=== PATIENT | male | born 1935 | race Caucasian/White ===

== ENCOUNTER 2017-10-28 18:18 | Emergency (ER) | payer OTHER ==
[~2017-10-28] VITALS: Ht 172.7 cm; Wt 81.6 kg
[2017-10-28] MEDS ORDERED: LIPITOR20 MG PO (19:00)
[2017-10-28] MEDS ORDERED: CELEXA10 MG PO (19:00)
[2017-10-28] MEDS ORDERED: ARICEPT10 MG PO (19:00)
[2017-10-28] MEDS ORDERED: PLAVIX75 MG PO (19:01)
[2017-10-28] MEDS ORDERED: NORVASC5 MG PO (19:01)
[2017-10-28] MEDS ORDERED: NAMENDA5 MG PO (19:01)
[2017-10-28] MEDS ORDERED: COZAAR100 MG PO (19:02)
== END 2017-10-28 22:53 | disposition home or self-care (01) ==
LOC: ER 18:18
DX: G89.11 Acute pain due to trauma (principal); M54.5 Low back pain; R55 Syncope and collapse; G30.8 Other Alzheimer's disease; F02.80 Dementia in other diseases classified elsewhere, unspecified severity, without behavioral disturbance, psychotic disturbance, mood disturbance, and anxiety

== ENCOUNTER 2017-11-18 18:58 | Inpatient (IN) | payer OTHER ==
[~2017-11-18] VITALS: Ht 172.7 cm; Wt 81.6 kg
[~2017-11-18 18:58] MED LIST: ARICEPT10 MG PO; CELEXA10 MG PO; COZAAR100 MG PO; LIPITOR20 MG PO; NAMENDA5 MG PO; NORVASC5 MG PO; PLAVIX75 MG PO
== END 2017-12-10 14:32 | disposition home or self-care (01) | DRG 872 ==
LOC: ER 18:58 → MEDJ 11-19 11:27 → SEC-K 11-19 11:27 → MEDJ 11-19 12:09
PROC: BW25ZZZ Computerized Tomography (CT Scan) of Chest, Abdomen and Pelvis (ICD-10-PCS; 2017-11-19)
PROC: 02HV33Z Insertion of Infusion Device into Superior Vena Cava, Percutaneous Approach (ICD-10-PCS; 2017-11-20)
PROC: 0W9G30Z Drainage of Peritoneal Cavity with Drainage Device, Percutaneous Approach (ICD-10-PCS; principal; 2017-11-21)
PROC: 3E0436Z Introduction of Nutritional Substance into Central Vein, Percutaneous Approach (ICD-10-PCS; 2017-11-24)
PROC: BW21Y0Z Computerized Tomography (CT Scan) of Abdomen and Pelvis using Other Contrast, Unenhanced and Enhanced (ICD-10-PCS; 2017-11-27)
PROC: BW21Y0Z Computerized Tomography (CT Scan) of Abdomen and Pelvis using Other Contrast, Unenhanced and Enhanced (ICD-10-PCS; 2017-12-09)
DX: A41.9 Sepsis, unspecified organism (principal); K57.20 Diverticulitis of large intestine with perforation and abscess without bleeding; E86.0 Dehydration; I10 Essential (primary) hypertension; E78.4 Other hyperlipidemia; M54.5 Low back pain; B96.29 Other Escherichia coli [E. coli] as the cause of diseases classified elsewhere; B96.5 Pseudomonas (aeruginosa) (mallei) (pseudomallei) as the cause of diseases classified elsewhere; B96.6 Bacteroides fragilis [B. fragilis] as the cause of diseases classified elsewhere; B96.7 Clostridium perfringens [C. perfringens] as the cause of diseases classified elsewhere

== ENCOUNTER 2017-12-14 10:33 | Emergency (ER) | payer OTHER ==
[~2017-12-14] VITALS: Ht 172.7 cm; Wt 81.6 kg
== END 2017-12-14 13:30 | disposition home or self-care (01) ==
LOC: ER 10:33
DX: H81.10 Benign paroxysmal vertigo, unspecified ear (principal)

== ENCOUNTER 2018-07-20 14:24 | Emergency (ER) | payer OTHER ==
[~2018-07-20] VITALS: Ht 175.3 cm; Wt 81.6 kg
== END 2018-07-20 21:01 | disposition home or self-care (01) ==
LOC: ER 14:24
DX: K52.89 Other specified noninfective gastroenteritis and colitis (principal); L03.311 Cellulitis of abdominal wall

== ENCOUNTER 2018-07-31 11:05 | Inpatient (IN) | payer OTHER ==
[~2018-07-31] VITALS: Ht 213.4 cm; Wt 5.0 kg
[2018-07-31] MEDS ORDERED: LASIX20 MG (11:31)
[2018-08-06] MEDS ORDERED: AMOX-CLAV 500-1 EACH PO (08:18)
[2018-08-06] MEDS ORDERED: INTESTINEX680 M1 PO (08:18)
== END 2018-08-06 10:16 | disposition home or self-care (01) | DRG 603 ==
LOC: ER 11:05 → SURG 08-01 08:04
PROVIDERS: ADMIT Surgery
PROC: BW21ZZZ Computerized Tomography (CT Scan) of Abdomen and Pelvis (ICD-10-PCS; 2018-07-31)
PROC: B246ZZZ Ultrasonography of Right and Left Heart (ICD-10-PCS; 2018-08-03)
PROC: 0W9F3ZZ Drainage of Abdominal Wall, Percutaneous Approach (ICD-10-PCS; principal; 2018-08-04 13:00)
DX: L02.211 Cutaneous abscess of abdominal wall (principal); K63.2 Fistula of intestine; K57.20 Diverticulitis of large intestine with perforation and abscess without bleeding; I31.3 Pericardial effusion (noninflammatory); F03.90 Unspecified dementia, unspecified severity, without behavioral disturbance, psychotic disturbance, mood disturbance, and anxiety; I10 Essential (primary) hypertension; E78.49 Other hyperlipidemia; R42 Dizziness and giddiness; N40.0 Benign prostatic hyperplasia without lower urinary tract symptoms; M62.58 Muscle wasting and atrophy, not elsewhere classified, other site

== ENCOUNTER 2018-08-31 10:31 | Inpatient (IN) | payer OTHER ==
[~2018-08-31] VITALS: Ht 172.7 cm; Wt 6.8 kg
[~2018-08-31 10:31] MED LIST changes: +AMOX-CLAV 500-1 EACH PO; +INTESTINEX680 M1 PO; +LASIX20 MG
[2018-09-08] MEDS ORDERED: INTESTINEX680 M1 PO (09:46)
[2018-09-08] MEDS ORDERED: CIPRO500 MG PO (09:46)
== END 2018-09-08 18:02 | disposition home or self-care (01) | DRG 330 ==
LOC: ER 10:31 → SURG 17:05
PROVIDERS: ADMIT Surgery
PROC: 3E0336Z Introduction of Nutritional Substance into Peripheral Vein, Percutaneous Approach (ICD-10-PCS; 2018-09-01)
PROC: 02HV33Z Insertion of Infusion Device into Superior Vena Cava, Percutaneous Approach (ICD-10-PCS; 2018-09-01)
PROC: BW21Y0Z Computerized Tomography (CT Scan) of Abdomen and Pelvis using Other Contrast, Unenhanced and Enhanced (ICD-10-PCS; 2018-09-03)
PROC: 0W9F30Z Drainage of Abdominal Wall with Drainage Device, Percutaneous Approach (ICD-10-PCS; 2018-09-04)
PROC: 0DTN4ZZ Resection of Sigmoid Colon, Percutaneous Endoscopic Approach (ICD-10-PCS; principal; 2018-09-04 15:00)
DX: K57.20 Diverticulitis of large intestine with perforation and abscess without bleeding (principal); L02.211 Cutaneous abscess of abdominal wall; K63.2 Fistula of intestine; B37.89 Other sites of candidiasis; I12.9 Hypertensive chronic kidney disease with stage 1 through stage 4 chronic kidney disease, or unspecified chronic kidney disease; N18.2 Chronic kidney disease, stage 2 (mild); G30.8 Other Alzheimer's disease; F02.80 Dementia in other diseases classified elsewhere, unspecified severity, without behavioral disturbance, psychotic disturbance, mood disturbance, and anxiety; E78.00 Pure hypercholesterolemia, unspecified; B96.5 Pseudomonas (aeruginosa) (mallei) (pseudomallei) as the cause of diseases classified elsewhere; B96.29 Other Escherichia coli [E. coli] as the cause of diseases classified elsewhere; B95.2 Enterococcus as the cause of diseases classified elsewhere